=== PATIENT | female | born 1985 | race Caucasian/White ===

== ENCOUNTER 2019-09-04 13:43 | Emergency (ER) | payer MEDICAID ==
[~2019-09-04] VITALS: Ht 165.1 cm; Wt 70.0 kg
[~2019-09-04 13:43] MED LIST: FAMO1TAB19 PO; IBUP-1984 PO; LEVA15HF4 IH; ONDA4TAB59 PO; [UNRECOGNIZED DRUG - OTHER]
[2019-09-04 14:05] VITALS: BP 165/80
--- NOTE | 2019-09-04 15:21 | NUR ---
PATIENT STATES THAT SHE HAS HAD COUGH, CONGESTION FOR THE PAST FEW MONTHS. STATES THAT HER CHEST IS FEELING TIGHT WITH COUGH FOR ABOUT ONE WEEK. DENIES FEVER.
[2019-09-04] MEDS ORDERED: ALBU8.5H8 IH (15:47)
--- NOTE | 2019-09-04 16:08 | NUR ---
O2 SATS 100% ON ROOM AIR. HR 86/MIN. DR. TORREZ INFORMED OF RESP STATUS.
== END 2019-09-04 15:31 | disposition home or self-care (01) ==
LOC: ER 13:44
DX: J06.9 Acute upper respiratory infection, unspecified (principal); J40 Bronchitis, not specified as acute or chronic; K21.9 Gastro-esophageal reflux disease without esophagitis; G89.29 Other chronic pain; F12.90 Cannabis use, unspecified, uncomplicated; Z87.442 Personal history of urinary calculi; Z72.89 Other problems related to lifestyle; Z90.89 Acquired absence of other organs; Z98.890 Other specified postprocedural states; Z88.8 Allergy status to other drugs, medicaments and biological substances; Z79.899 Other long term (current) drug therapy
CPT/HCPCS: 99283